=== PATIENT | female | born 2000 | race African-American/Black ===

== ENCOUNTER → 2018-10-18 | Outpatient (CLI) | payer BC ==
[2018-10-18 17:11] LABS: CLARITY URINE CLEAR (CLEAR); COLOR URINE YELLOW (YELLOW); KETONES URINE TRACE (NEGATIVE); LEUKOCYTE ESTERASE URINE TRACE (NEGATIVE); NITRITE URINE NEGATIVE (NEGATIVE); OCCULT BLOOD URINE NEGATIVE (NEGATIVE); PROTEIN URINE NEGATIVE (NEGATIVE); SPECIFIC GRAVITY URINE 1.029 (1.005-1.030)
== END | disposition home or self-care (01) ==
LOC: LAB 16:27
PROVIDERS: ATTEND Internal Medicine Geriatric Medicine
DX: Z13.0 Encounter for screening for diseases of the blood and blood-forming organs and certain disorders involving the immune mechanism (principal); Z13.220 Encounter for screening for lipoid disorders; R07.0 Pain in throat; N39.0 Urinary tract infection, site not specified
CPT/HCPCS: 87070; 87077

== ENCOUNTER 2020-02-12 15:17 | Emergency (ER) | payer BC ==
[~2020-02-12] VITALS: Ht 154.9 cm; Wt 57.0 kg
[2020-02-12] MEDS ORDERED: KETOROLAC 30MG/ML VIAL IM ONE (16:30)
[2020-02-12 17:00] VITALS: BP 117/61
== END 2020-02-12 17:09 | disposition home or self-care (01) ==
LOC: ER 15:17
DX: S46.012A Strain of muscle(s) and tendon(s) of the rotator cuff of left shoulder, initial encounter (principal); X58.XXXA Exposure to other specified factors, initial encounter; Y93.89 Activity, other specified; Y92.89 Other specified places as the place of occurrence of the external cause; Y99.8 Other external cause status
CPT/HCPCS: 73030; 96372; 99283; J1885

== ENCOUNTER → 2020-02-15 | Outpatient (CLI) | payer BC ==
[2020-02-15 15:45] LABS: BASOPHILS % 0.5 % (0.0-2.0); EOSINOPHILS % 0.7 % (0.0-5.0); HEMATOCRIT. 34.8 % (36.0-48.0); HEMOGLOBIN. 11.3 g/dL (12.0-16.0); LYMPHOCYTES % 31.3 % (20.0-50.0); MEAN CORPUSCULAR VOLUME 85.6 fL (81.0-99.0); MEAN PLATELET VOLUME 7.3 fl (7.4-10.4); MONOCYTES % 4.8 % (2.0-8.0); NEUTROPHILS % 62.7 % (40.0-76.0); PLATELET 259 x1000/uL (130-400); RED BLOOD CELL COUNT 4.06 mill/uL (4.2-5.4); RED CELL DISTRIBUTION WIDTH 13.7 % (11.6-14.6)
[2020-02-15 16:05] LABS: CHLORIDE 104 mEq/L (98-107)
[2020-02-15 16:10] LABS: TOTAL IRON BINDING CAPACITY 362 ug/dL (250-450)
[2020-02-15 16:11] LABS: CLARITY URINE CLEAR (CLEAR); COLOR URINE YELLOW (YELLOW); KETONES URINE NEGATIVE (NEGATIVE); LEUKOCYTE ESTERASE URINE NEGATIVE (NEGATIVE); NITRITE URINE NEGATIVE (NEGATIVE); OCCULT BLOOD URINE NEGATIVE (NEGATIVE); PROTEIN URINE NEGATIVE (NEGATIVE); SPECIFIC GRAVITY URINE 1.014 (1.005-1.030); UROBILINOGEN URINE 0.2 E.U./dL (0.2-1.0)
[2020-02-15 16:12] LABS: HDL CHOLESTEROL 91 mg/dL (40-59); LDL CHOLESTEROL 70 mg/dL (5-100)
[2020-02-15 16:17] LABS: HEPATITIS B SURFACE AB 45.7 mIU/mL
[2020-02-15 16:34] LABS: VITAMIN B12 SERUM 1352 pg/mL (211-911)
[2020-02-15 16:58] LABS: HEPATITIS A AB IGM NEGATIVE (NEGATIVE)
[2020-02-17 13:06] LABS: HIV SCREEN 4G Non Reactive (Non Reactive)
[2020-02-18 09:08] LABS: VITAMIN D 25-OH 20.8 ng/mL (30.0-100.0)
[2020-02-19 04:08] LABS: HBSAG SCREEN Negative (Negative)
[2020-02-19 09:10] LABS: NEISSERIA GONORRHOEAE NAA Negative (Negative)
== END | disposition home or self-care (01) ==
LOC: LAB 14:53
PROVIDERS: ATTEND Internal Medicine Geriatric Medicine
DX: Z00.01 Encounter for general adult medical examination with abnormal findings (principal); Z11.3 Encounter for screening for infections with a predominantly sexual mode of transmission; Z13.1 Encounter for screening for diabetes mellitus; Z13.220 Encounter for screening for lipoid disorders
CPT/HCPCS: 36415; 80053; 80061; 81003; 82306; 82607; 83036; 83540; 83550; 84443; 85025; 86592; 86705; 86706; 86709; 86803; 87340; 87389; 87491; 87591

== ENCOUNTER → 2021-08-25 | Outpatient (CLI) | payer BC ==
[2021-08-25 14:32] LABS: CHLORIDE 105 mEq/L (98-107)
[2021-08-25 14:34] LABS: BASOPHILS % 0.3 % (0.0-2.0); EOSINOPHILS % 1.3 % (0.0-5.0); HEMATOCRIT. 36.2 % (36.0-48.0); HEMOGLOBIN. 11.9 g/dL (12.0-16.0); MEAN CORPUSCULAR HEMOGLOBIN 27.5 pg (28.0-32.0); MEAN CORPUSCULAR VOLUME 84.1 fL (81.0-99.0); MEAN PLATELET VOLUME 7.5 fl (7.4-10.4); MONOCYTES % 5.8 % (2.0-8.0); NEUTROPHILS % 46.6 % (40.0-76.0); PLATELET 313 x1000/uL (130-400); RED BLOOD CELL COUNT 4.31 mill/uL (4.2-5.4); RED CELL DISTRIBUTION WIDTH 14.4 % (11.6-14.6)
[2021-08-25 14:46] LABS: HDL CHOLESTEROL 79 mg/dL (40-59); LDL CHOLESTEROL 55 mg/dL (5-100); TOTAL IRON BINDING CAPACITY 430 ug/dL (250-450)
[2021-08-25 15:00] LABS: VITAMIN B12 SERUM 1569 pg/mL (211-911)
[2021-08-26 09:06] LABS: HIV SCREEN 4G Non Reactive (Non Reactive); VITAMIN D 25-OH 22.4 ng/mL (30.0-100.0)
[2021-08-27 08:08] LABS: NEISSERIA GONORRHOEAE NAA Negative (Negative)
== END | disposition home or self-care (01) ==
LOC: LAB 13:22
PROVIDERS: ATTEND Internal Medicine Geriatric Medicine
DX: Z00.01 Encounter for general adult medical examination with abnormal findings (principal); Z11.3 Encounter for screening for infections with a predominantly sexual mode of transmission; Z13.0 Encounter for screening for diseases of the blood and blood-forming organs and certain disorders involving the immune mechanism; Z13.1 Encounter for screening for diabetes mellitus; N39.0 Urinary tract infection, site not specified; K29.70 Gastritis, unspecified, without bleeding; K59.04 Chronic idiopathic constipation; R10.2 Pelvic and perineal pain; F43.21 Adjustment disorder with depressed mood
CPT/HCPCS: 36415; 76830; 76856; 80053; 80061; 82306; 82607; 83036; 83540; 83550; 84443; 85025; 86592; 86694; 87389; 87491; 87591

== ENCOUNTER 2022-01-22 17:24 | Emergency (ER) | payer BC ==
[~2022-01-22] VITALS: Ht 154.9 cm; Wt 55.0 kg
[2022-01-22 17:37] VITALS: BP 102/68
[2022-01-22] MEDS ORDERED: LIDOCAINE HCL 1% 20ML VIAL (Pyxis) INJ INFIL ONE (21:00)
[2022-01-22] MEDS: LIDOCAINE HCL 1% 10 MG/ML 10ML VIAL INJ SCH ×2 (21:36→21:56)
[2022-01-22] MEDS ORDERED: IBUP-2028 MT (22:02)
== END 2022-01-22 22:11 | disposition home or self-care (01) ==
LOC: ER 17:24
DX: M79.644 Pain in right finger(s) (principal)
CPT/HCPCS: 99281; J3490

== ENCOUNTER 2022-07-27 11:02 | Emergency (ER) | payer BC ==
[~2022-07-27] VITALS: Ht 157.5 cm; Wt 54.0 kg
[~2022-07-27 11:02] MED LIST: IBUP-2028 MT
[2022-07-27] MEDS ORDERED: KETOROLAC 60MG/2ML VIAL IM STA (11:43)
[2022-07-27] MEDS ORDERED: ONDANSETRON HCL 4MG/2ML INJ IM ONE (11:45)
[2022-07-27 12:41] LABS: BASOPHILS % 0.1 % (0.0-2.0); EOSINOPHILS % 0.3 % (0.0-5.0); HEMATOCRIT. 35.7 % (36.0-48.0); HEMOGLOBIN. 11.6 g/dL (12.0-16.0); LYMPHOCYTES % 9.1 % (20.0-50.0); MEAN CORPUSCULAR HEMOGLOBIN 27.6 pg (28.0-32.0); MEAN CORPUSCULAR VOLUME 84.5 fL (81.0-99.0); MEAN PLATELET VOLUME 7.2 fl (7.4-10.4); MONOCYTES % 3.2 % (2.0-8.0); NEUTROPHILS % 87.3 % (40.0-76.0); PLATELET 309 x1000/uL (130-400); RED BLOOD CELL COUNT 4.22 mill/uL (4.2-5.4); RED CELL DISTRIBUTION WIDTH 13.8 % (11.6-14.6)
[2022-07-27 12:53] LABS: CHLORIDE 109 mEq/L (98-107)
[2022-07-27 13:04] LABS: B-HCG QUANTITATIVE < 1 mIU/mL (<3)
[2022-07-27 14:18] LABS: CLARITY URINE CLOUDY (CLEAR); COLOR URINE YELLOW (YELLOW); KETONES URINE TRACE (NEGATIVE); LEUKOCYTE ESTERASE URINE TRACE (NEGATIVE); NITRITE URINE NEGATIVE (NEGATIVE); OCCULT BLOOD URINE 3+ (NEGATIVE); PH URINE 5.5 (4.5-8.0); PROTEIN URINE 1+ (NEGATIVE)
[2022-07-27] MEDS ORDERED: NAPR-681 PO (14:42)
[2022-07-27 15:15] VITALS: BP 116/58
== END 2022-07-27 15:17 | disposition home or self-care (01) ==
LOC: ER 11:09
DX: N94.6 Dysmenorrhea, unspecified (principal); J06.9 Acute upper respiratory infection, unspecified; Z20.822 Contact with and (suspected) exposure to COVID-19
CPT/HCPCS: 36415; 80053; 81003; 84702; 85025; 87426; 96372; 99284; C9803; J1885; J2405

== ENCOUNTER → 2023-03-14 | Outpatient (CLI) | payer BC ==
[~2023-03-14] MED LIST changes: +NAPR-681 PO
== END | disposition home or self-care (01) ==
LOC: RAD 15:07
PROVIDERS: ATTEND Internal Medicine Geriatric Medicine
DX: S91.301A Unspecified open wound, right foot, initial encounter (principal); M79.89 Other specified soft tissue disorders; X58.XXXA Exposure to other specified factors, initial encounter; Y93.89 Activity, other specified; Y92.89 Other specified places as the place of occurrence of the external cause; Y99.8 Other external cause status
CPT/HCPCS: 73630

== ENCOUNTER → 2023-04-20 | Outpatient (CLI) | payer BC ==
[~2023-04-20] MED LIST changes: +ACYC200C31 PO
[2023-04-20 11:33] LABS: BASOPHILS % 0.4 % (0.0-2.0); EOSINOPHILS % 1.3 % (0.0-5.0); HEMATOCRIT. 35.8 % (36.0-48.0); HEMOGLOBIN. 11.6 g/dL (12.0-16.0); LYMPHOCYTES % 30.9 % (20.0-50.0); MEAN CORPUSCULAR HGB CONC 32.5 g/dL (31.0-37.0); MEAN CORPUSCULAR VOLUME 86.1 fL (81.0-99.0); MEAN PLATELET VOLUME 7.6 fl (7.4-10.4); MONOCYTES % 4.1 % (2.0-8.0); NEUTROPHILS % 63.3 % (40.0-76.0); PLATELET 260 x1000/uL (130-400); RED BLOOD CELL COUNT 4.15 mill/uL (4.2-5.4); RED CELL DISTRIBUTION WIDTH 13.8 % (11.6-14.6); WHITE BLOOD COUNT 4.4 x1000/uL (4.5-11.0)
[2023-04-20 11:45] LABS: INR 1.1; PARTIAL THROMBOPLASTIN TIME 31.7 sec (23.4-31.0); PROTHROMBIN TIME 11.3 sec (9.6-11.0)
[2023-04-20 12:09] LABS: ALANINE AMINOTRANSFERASE < 7 IU/L (10-49); ALBUMIN 4.4 g/dL (3.2-4.8); ASPARTATE AMINOTRANSFERASE 19 IU/L (<34); BILIRUBIN TOTAL 0.4 mg/dL (0.1-1.0); CALCIUM 9.1 mg/dL (8.7-10.4); CARBON DIOXIDE 30 mEq/L (21-32); CHLORIDE 104 mEq/L (98-107); CHOLESTEROL 174 mg/dL (<200); CREATININE 0.7 mg/dL (0.6-1.0); GLUCOSE 83 mg/dL (70-105); HDL CHOLESTEROL 79 mg/dL (>65); IRON 85 ug/dL (50-170); LDL CHOLESTEROL 73 mg/dL (5-100); POTASSIUM 3.5 mEq/L (3.5-5.1); PROTEIN TOTAL 8.3 g/dL (6.0-8.3); SODIUM 138 mEq/L (136-145); THYROID STIMULATING HORMONE 1.13 uIU/mL (0.55-4.78); TOTAL IRON BINDING CAPACITY 272 ug/dl (250-425); TRIGLYCERIDE 58 mg/dL (0-150); UREA NITROGEN BLOOD 16 mg/dL (9-23)
[2023-04-20 12:22] LABS: FERRITIN 12 ng/mL (10-291); VITAMIN B12 SERUM 951 pg/mL (211-911)
[2023-04-20 14:00] LABS: CLARITY URINE SL HAZY (CLEAR); COLOR URINE YELLOW (YELLOW)
[2023-04-20 14:01] LABS: GLUCOSE URINE NEGATIVE (NEGATIVE); KETONES URINE NEGATIVE (NEGATIVE); LEUKOCYTE ESTERASE URINE NEGATIVE (NEGATIVE); NITRITE URINE NEGATIVE (NEGATIVE); OCCULT BLOOD URINE NEGATIVE (NEGATIVE); PROTEIN URINE NEGATIVE (NEGATIVE); SPECIFIC GRAVITY URINE >1.030 (1.005-1.030); UROBILINOGEN URINE 0.2 E.U./dL (0.2-1.0)
== END | disposition home or self-care (01) ==
LOC: LAB 11:04
PROVIDERS: ATTEND Internal Medicine Geriatric Medicine
DX: Z01.812 Encounter for preprocedural laboratory examination (principal); N39.0 Urinary tract infection, site not specified; D50.0 Iron deficiency anemia secondary to blood loss (chronic); E55.9 Vitamin D deficiency, unspecified
CPT/HCPCS: 36415; 80053; 80061; 81003; 82306; 82607; 82728; 82746; 83036; 83540; 83550; 84443; 85025; 86592

== ENCOUNTER → 2023-04-22 | Day surgery (SDC) | payer BC ==
[~2023-04-22] VITALS: Ht 157.5 cm; Wt 54.4 kg
[~2023-04-22] MED LIST changes: +FENTANYL CITRATE/PF 50MCG/ML 2ML VIAL ONE; +HYDROMORPHONE HCL/PF 2MG/ML CPJ IV PRN; +LABETALOL 5MG/ML SYR 20 MG/4 ML SYRINGE IV PRN; +LACTATED RINGERS 1,000 ML IV SCH; +LIDOCAINE HCL 1%/EPI 1:200,000 30 ML VIAL ONE; +MEPERIDINE HCL/PF 25MG/ML CPJ IV PRN; +MIDAZOLAM HCL 2 MG/2 ML VIAL ONE; +ONDANSETRON HCL 4MG/2ML INJ IV PRN; +POLYMYXIN B SULFATE 500000 UNITS/VIAL ONE; +VANCOMYCIN HCL 1 GM/VIAL ONE
[2023-04-22 12:11] LABS: UCG SCREEN NEGATIVE
== END | disposition home or self-care (01) ==
LOC: OR 11:38
PROVIDERS: ATTEND Student in an Organized Health Care Education/Training Program
DX: M79.5 Residual foreign body in soft tissue (principal); Z79.899 Other long term (current) drug therapy; Z98.890 Other specified postprocedural states
CPT/HCPCS: 28192; 81025; 88300; 73620; 76000; J3010; J3490 ×2; J2250; J3370

== ENCOUNTER → 2024-01-27 | Outpatient (CLI) | payer BC ==
[~2024-01-27] MED LIST changes: -FENTANYL CITRATE/PF 50MCG/ML 2ML VIAL ONE; -HYDROMORPHONE HCL/PF 2MG/ML CPJ IV PRN; -LABETALOL 5MG/ML SYR 20 MG/4 ML SYRINGE IV PRN; -LACTATED RINGERS 1,000 ML IV SCH; -LIDOCAINE HCL 1%/EPI 1:200,000 30 ML VIAL ONE; -MEPERIDINE HCL/PF 25MG/ML CPJ IV PRN; -MIDAZOLAM HCL 2 MG/2 ML VIAL ONE; -ONDANSETRON HCL 4MG/2ML INJ IV PRN; -POLYMYXIN B SULFATE 500000 UNITS/VIAL ONE; -VANCOMYCIN HCL 1 GM/VIAL ONE
[2024-01-27 10:08] LABS: BASOPHILS % 0.4 % (0.0-2.0); EOSINOPHILS % 1.9 % (0.0-5.0); HEMATOCRIT. 35.5 % (36.0-48.0); HEMOGLOBIN. 11.7 g/dL (12.0-16.0); LYMPHOCYTES % 36.9 % (20.0-50.0); MEAN CORPUSCULAR HEMOGLOBIN 28.2 pg (28.0-32.0); MEAN CORPUSCULAR VOLUME 85.4 fL (81.0-99.0); MEAN PLATELET VOLUME 7.4 fl (7.4-10.4); NEUTROPHILS % 56.8 % (40.0-76.0); PLATELET 279 x1000/uL (130-400); RED BLOOD CELL COUNT 4.16 mill/uL (4.2-5.4); WHITE BLOOD COUNT 3.1 x1000/uL (4.5-11.0)
[2024-01-27 10:17] LABS: CHLORIDE 107 mEq/L (98-107); POTASSIUM 3.6 mEq/L (3.5-5.1); SODIUM 139 mEq/L (136-145)
[2024-01-27 10:18] LABS: CARBON DIOXIDE 27 mEq/L (21-32)
[2024-01-27 10:19] LABS: CALCIUM 9.2 mg/dL (8.7-10.4)
[2024-01-27 10:23] LABS: CREATININE 0.9 mg/dL (0.6-1.0); GLUCOSE 93 mg/dL (70-105); IRON 51 ug/dL (50-170)
[2024-01-27 10:24] LABS: LDL CHOLESTEROL 82 mg/dL (5-100); TRIGLYCERIDE 48 mg/dL (0-150); UREA NITROGEN BLOOD 13 mg/dL (9-23)
[2024-01-27 10:25] LABS: ALANINE AMINOTRANSFERASE 9 IU/L (10-49); ALBUMIN 4.3 g/dL (3.2-4.8); ASPARTATE AMINOTRANSFERASE 22 IU/L (<34); CHOLESTEROL 161 mg/dL (<200); HDL CHOLESTEROL 72 mg/dL (>65)
[2024-01-27 10:26] LABS: BILIRUBIN TOTAL 0.4 mg/dL (0.1-1.0); TOTAL IRON BINDING CAPACITY 360 ug/dl (250-425)
[2024-01-27 10:28] LABS: THYROID STIMULATING HORMONE 0.92 uIU/mL (0.55-4.78)
[2024-01-27 11:10] LABS: CLARITY URINE CLEAR (CLEAR); COLOR URINE YELLOW (YELLOW); GLUCOSE URINE NEGATIVE (NEGATIVE); KETONES URINE NEGATIVE (NEGATIVE); LEUKOCYTE ESTERASE URINE NEGATIVE (NEGATIVE); NITRITE URINE NEGATIVE (NEGATIVE); OCCULT BLOOD URINE 2+ (NEGATIVE); PROTEIN URINE NEGATIVE (NEGATIVE); SPECIFIC GRAVITY URINE 1.025 (1.005-1.030); UROBILINOGEN URINE 0.2 E.U./dL (0.2-1.0)
[2024-01-27 11:53] LABS: FOLIC ACID (FOLATE) SERUM 12.51 ng/mL (>5.38)
[2024-01-27 11:54] LABS: VITAMIN B12 SERUM 969 pg/mL (211-911)
[2024-01-27 12:11] LABS: HIV 1/2 AB P24AG Negative (Negative)
[2024-01-27 13:00] LABS: MUCUS URINE 3+ /lpf (< = 2+); SQUAMOUS EPITHELIAL CELL URINE 2+ /lpf (RARE/1+)
[2024-01-27 13:01] LABS: WBC URINE 0-2 /hpf (0-2)
[2024-01-27 13:02] LABS: BACTERIA URINE TRACE; RBC URINE 0-2 /hpf (0-2)
[2024-01-28 07:11] LABS: FOLICLE STIMULATING HORMONE 7.5 mIU/mL (.); VITAMIN D 25-OH 24.7 ng/mL (30.0-100.0)
[2024-01-29 13:06] LABS: CHLAMYDIA TRACHOMATIS NAA Negative (Negative); NEISSERIA GONORRHOEAE NAA Negative (Negative)
== END | disposition home or self-care (01) ==
LOC: LAB 08:54
PROVIDERS: ATTEND Internal Medicine Geriatric Medicine
DX: Z00.01 Encounter for general adult medical examination with abnormal findings (principal)
CPT/HCPCS: 36415; 80053; 80061; 81003; 82306; 82607; 82746; 83001; 83036; 83540; 83550; 83655; 84443; 85025; 86850; 87491; 87517; 87591